=== PATIENT | female | born 1975 | race Caucasian/White ===

== ENCOUNTER 2017-04-14 06:24 | Day surgery (SDC) | payer OTHER ==
[2017-04-13 14:55] VITALS: BMI 37.5
[~2017-04-14 06:24] MED LIST: BUPIVACAINE HCL/PF 0.5% (5MG/ML) 10 ML VIAL IJ ONE
[2017-04-14 07:30] LABS: INR 0.92 (0.82-1.09); PROTHROMBIN TIME (PATIENT) 10.4 SEC (9.98-11.88)
[2017-04-14] MEDS ORDERED: SUCCINYLCHOLINE CHLORIDE 200 MG/10 ML VIAL ONE (07:37)
[2017-04-14] MEDS ORDERED: LIDOCAINE HCL/PF 2% SDV 5ML VIAL ONE (07:37)
[2017-04-14] MEDS ORDERED: PROPOFOL 20 ML ONE ×4 (07:37)
[2017-04-14] MEDS ORDERED: MIDAZOLAM HCL 2 MG/2 ML SINGLE DOSE VIAL ONE (07:37)
[2017-04-14] MEDS ORDERED: BUPIVACAINE HCL/PF 0.5% (5MG/ML) 10 ML VIAL ONE (07:53)
[2017-04-14] MEDS ORDERED: SEVOFLURANE 250 ML BTL ONE (08:07)
[2017-04-14] MEDS ORDERED: ceFAZolin SODIUM 1 GM VIAL IVPB ONE (08:30)
[2017-04-14] MEDS ORDERED: ONDANSETRON 4 MG/2 ML VIAL ONE ×2 (08:32→13:03)
[2017-04-14] MEDS ORDERED: ceFAZolin SODIUM 1 GM VIAL ONE (08:32)
[2017-04-14] MEDS ORDERED: DEXAMETHASONE SOD PHOSPHATE 4 MG/1 ML VIAL ONE (08:32)
[2017-04-14] MEDS ORDERED: HYDROmorphone HCL/PF 1 MG/ML VIAL (FOR PYXIS CHARGING ONLY) ONE ×2 (08:49→10:08)
[2017-04-14] MEDS ORDERED: NEOSTIGMINE METHYLSULFATE 0.5 MG/ML - 10 ML MDV ONE (08:50)
[2017-04-14] MEDS ORDERED: GLYCOPYRROLATE 0.2 MG/1 ML VIAL ONE (08:50)
[2017-04-14] MEDS ORDERED: HYDROmorphone HCL CARPU-JECT 1 MG/1 ML DISP.SYRIN IVPUSH PRN ×2 (10:34→10:55)
[2017-04-14] MEDS ORDERED: ONDANSETRON 4 MG/2 ML VIAL IVPUSH PRN ×2 (10:34→10:54)
[2017-04-14] MEDS ORDERED: BUPIVACAINE HCL/PF 0.5% (5MG/ML) 10 ML VIAL IJ ONE (10:41)
[2017-04-14] MEDS ORDERED: SODIUM CHLORIDE 1,000 ML IV SCH (11:00)
--- NOTE | 2017-04-14 11:06 | OP ---
Operative Note - Note: Operative Date: 04/14/17 Pre-Operative Diagnosis: epigastric Pain. Vomiting. Malfunctioning mechanical device secondary to gastric band Operation: Removal plus replacement of malfunctioning gastric band. Laparoscopic Lysis of adhesions. Excision of fibrous capsule around stomach. Diagnostic Laparoscopy Findings: Large amount of adhesions RUQ and LUQ from previous surgery. Thickened fibrous capsule around stomach secondary to band that was needed to be dissected free Implants: none Post-Operative Diagnosis: Same as Pre-op (plus; Abdominal adhesions and fibrous capsule around stomach) Surgeon: Franklyn Murphy Speech Pathologist: Preston Pino Anesthesia: General Specimens Removed: Gastric Band Estimated Blood Loss (mls): 50 Operative Report Dictated: Yes
[2017-04-14] MEDS ORDERED: oxyCODONE HCL 5 MG TABLET PO PRN ×2 (12:10)
[2017-04-14 12:18] LABS: MCH 27.5 pg (25.7-33.7); MCHC 32.4 g/dl (32.0-36.0); MEAN CELL VOLUME 84.8 fl (80-96); MEAN PLT VOLUME 8.7 fl (7.5-11.1); PLATELET COUNT 143 K/MM3 (134-434); RDW 14.3 % (11.6-15.6); WHITE BLOOD COUNT 7.2 K/mm3 (4.0-10.0)
[2017-04-14 12:26] LABS: BASOPHIL 0.2 % (0-2.0); MCH 27.4 pg (25.7-33.7); MCHC 32.2 g/dl (32.0-36.0); MEAN CELL VOLUME 85.2 fl (80-96); MEAN PLT VOLUME 8.6 fl (7.5-11.1); NEUTROPHILS 88.1 % (42.8-82.8); PLATELET COUNT 146 K/MM3 (134-434); RDW 14.3 % (11.6-15.6); WHITE BLOOD COUNT 7.2 K/mm3 (4.0-10.0)
[2017-04-14 13:03] LABS: ANION GAP 7 (8-16); CALCIUM 7.9 mg/dL (8.5-10.1); CO2 24 mmol/L (21-32); CREATININE 0.8 mg/dL (0.55-1.02); GLUCOSE,RANDOM 114 mg/dL (74-106)
[2017-04-14] MEDS ORDERED: FAMOTIDINE 20 MG PREMIXED IVPB IVPB ONE (13:30)
[2017-04-14] MEDS ORDERED: FAMOTIDINE 20 MG/50 ML IVPB 20 MG/50 ML MG IVPB ONE (13:44)
[2017-04-14 13:52] VITALS: TEMP 97.7
[2017-04-14] MEDS ORDERED: ENOXAPARIN NA (PORCINE) 40 MG/0.4 ML DISP.SYRIN SQ ONE (14:30)
--- NOTE | 2017-04-14 14:31 | OP ---
Operative Note - Note: Operative Date: 04/14/17 Pre-Operative Diagnosis: Evaluate for leak/obstruction after gastric band revision Operation: Upper endoscopy/EGD Post-Operative Diagnosis: Other (No leak/obstruction; inflammatory changes at prior band site) Surgeon: Preston Pino Anesthesia: General Estimated Blood Loss (mls): 0 Operative Report Dictated: Yes
[2017-04-14 17:01] VITALS: BP 122/76; PULSE 80
[2017-04-14] MEDS ORDERED: FAMOTIDINE IV 20 MG/12 ML VIAL IVPUSH SCH (22:00)
--- NOTE | 2017-04-15 09:20 | OP ---
DATE OF OPERATION: 04/14/2017 PREOPERATIVE DIAGNOSES: 1. Epigastric pain. 2. Vomiting. 3. Malfunctioning mechanical device secondary to gastric band. POSTOPERATIVE DIAGNOSES: 1. Epigastric pain. 2. Vomiting. 3. Malfunctioning mechanical device secondary to gastric band. 4. Abdominal adhesions. 5. Fibrous capsule around the stomach. PROCEDURE PERFORMED: 1. Removal of malfunctioning gastric band. 2. Laparoscopic lysis of adhesions. 3. Excision of fibrous capsule around the stomach. 4. Diagnostic laparoscopy. OPERATING SURGEON: Franklyn Murphy MD PHOTOLITH OPERATOR: Preston Pino MD ANESTHESIA: General. OPERATIVE PROCEDURE: The patient was brought into the operating room, placed on the OR table in supine position. All precautions were taken initially including padding for the back and the feet, and Venodyne boots were placed on both lower extremities. At that point the abdomen was prepped and draped in the usual manner. A Veress needle was placed in the left upper quadrant and a pneumoperitoneum was established. A No. 12 bladeless trocar was placed in the left upper quadrant. Through that trocar, a laparoscopic camera was placed. Immediately upon placing the camera, there were noted to be a lot of adhesions in the right upper quadrant from the patient's previous surgery. This was where the next trocar was going to be placed, so because of that, a No. 12 trocar was now placed over the left costal margin where there were also adhesions, but it was placed a little higher than usual. Using that as a working port, the adhesions in the right upper quadrant by the falciform ligament were dissected free until the entire right upper quadrant was free of adhesions. At this point a No. 15 bladeless trocar was placed in the right upper quadrant and a No. 5 bladeless trocar below the right costal margin. A Charis liver retractor was then placed in the epigastrium to retract the left lobe of the liver. The patient was then placed in a 20-degree reverse Trendelenburg position, and the tubing leading to the stomach around the band was grabbed by the broker assistant surgeon, retracted to the patient's left side. The operating surgeon was able to then grab the stomach wall and pull it inferiorly on the lesser curvature side. At this point the electrocautery was used to score the adhesions and the fibrosis capsule wrap off of the band on the lesser curvature until the entire band of the lesser curvature was free and visible. At this point the operating surgeon retracted the band and the tubing toward the patient's right side. The broker assistant surgeon retracted the stomach inferiorly on the greater curve. Now the electrocautery was used to dissect the capsule off the band, and this continued until the entire band on the greater curvature was in full view. The band was then opened and was cut in 2, and both pieces were removed from the stomach, sent off the field to pathology as specimen. Attention was now directed to the fibrous capsule of the stomach. This was causing a constriction of the stomach and possible symptoms for the patient. With both the broker assistant and operating surgeon lifting the capsule up, the operating surgeon was able to place laparoscopic scissors under the capsule and split it from inferior to superior all the way up toward the esophagus and towards the liver. Once this was done, the capsule was then peeled back first on the lesser curvature side and then on the greater curvature until the entire anterior wall of the stomach was free of fibrous capsule and adhesions. At this point the stomach was pulled to the patient's right side by the operating surgeon as the broker assistant surgeon retracted the omentum inferiorly. Electrocautery was used to score the peritoneum over the left esophagogastric junction in order to dissect the esophagogastric junction. At that point, a laparoscopic instrument was placed from the right side by the caudate lobe anterior to the right lorena until it was able to come free in the left upper quadrant. At this point the gastric band, which was an AP large band, was then prepped by the OR team, placed through the No. 15 port site. The band tube had been placed into the laparoscopic instrument which was pulled, withdrawn to the patient's right side. The band tube was placed into the band buckle, which was tied or cinched down, and the band was rotated to the patient's right side. The laparoscopic instrument easily fit between the band and anterior stomach wall. At this point, the broker assistant surgeon, Dr. Pino, scrubbed out and performed an upper endoscopy. The upper endoscopy details will be described in his note, but essentially showed that the band was not too tight and there was a channel for liquids and food to continue into the distal stomach. It also showed that there were no signs of any leakage of the stomach from all the lysis of adhesions and excision of capsule which was done along the stomach wall. At that point the upper endoscopy was completed by Dr. Pino. At this point the band tubing was brought out the No. 15 site. Under direct vision all trocars were removed, the pneumoperitoneum was released. The new band tubing is now connected to the band port from the previous band which still remained in place, and at that point all trocar sites received 0.25% Marcaine, were closed with 4-0 Biosyn in subcuticular fashion. The site of the port first was closed with 3-0 Vicryl in the subcutaneous tissue, followed by 4-0 Biosyn in subcuticular fashion. Dressings were applied, patient awoken from anesthesia and transferred out of the operating room to the recovery room in stable condition. EXPECTED BLOOD LOSS: 50 mL. Carola [id number]
--- NOTE | 2017-04-15 09:21 | PATH ---
Surgical Pathology Report Patient Name: REYNALDO VOGEL [facility]. Rec. #: [id number] /Age/Gender: 1975 (Age: 41) / F Account: [id number] Location: [facility] SURGICAL Taken: 04/14/2017 Received: 04/14/2017 Reported: 04/15/2017 Physicians: Franklyn Murphy M.D. Specimen(s) Received REMOVED GASTRIC BAND Clinical History Mechanical complication of bile duct prosthesis Final Diagnosis GASTRIC BAND, REMOVAL: STAFF RADIATION THERAPIST (GASTRIC BAND). MACROSCOPIC DIAGNOSIS Electronically Signed Judi Espinal M.D. Gross Description Received fresh labeled "removed gastric band," are 2 portions of a disrupted gastric band measuring 5.0 x 1.3 x 0.7 cm and 5.8 x 1.3 x 0.7 cm. The larger portion displays an attached 34.5 cm in length portion of white tubing. There are 2 additional portions of white tubing separately received within the same container measuring 5.3 and 6.8 cm in length. No soft tissue is present. No sections are submitted, gross only. 04/14/2017 saudi04/14/2017
--- NOTE | 2017-04-15 10:40 | OP ---
DATE OF OPERATION: 04/14/2017 PREOPERATIVE DIAGNOSIS: Intraoperative consultation requested for rule out obstruction or leak after revision of gastric band placement by Dr. Murphy. DESCRIPTION OF PROCEDURE: The patient was scheduled for revision of her gastric band. She was having complaints of dysphagia, epigastric pain, and reflux. Intraoperatively, Dr. Murphy freed the band from its initial position and removed it. A new band was placed in a separate location. Please refer to Dr. Murphy's note for the operative findings and report. Because of the extensive scar tissue noted from the previous band placement and the requirement for capsulotomy, request was made for an intraoperative endoscopy. An endoscopy was performed. The entirety of the esophagus, GE junction, stomach was inspected down to the level of the pylorus. No leak or obstruction was noted. There was noted to be extensive inflammatory at the level of the previous band. The stomach was suctioned. The endoscope removed from the patient fully intact. The patient tolerated the procedure well. The remainder of the procedure was continued. Carola [id number]
--- NOTE | 2017-04-16 07:39 | OP ---
DATE OF OPERATION: 04/14/2017 PREOPERATIVE DIAGNOSES: 1. Epigastric pain. 2. Vomiting. 3. Malfunctioning mechanical device secondary to gastric band. POSTOPERATIVE DIAGNOSES: 1. Epigastric pain. 2. Vomiting. 3. Malfunctioning mechanical device secondary to gastric band. 4. Abdominal adhesions. 5. Fibrous capsules around the stomach. PROCEDURES: 1. Removal plus replacement of malfunctioning gastric band. 2. Laparoscopic lysis of adhesions. 3. Excision of fibrous capsule around the stomach. 4. Diagnostic laparoscopy. OPERATING SURGEON: Franklyn Murphy MD PROGRAM CHECKER: Preston Pino MD ANESTHESIA: General. EXPECTED BLOOD LOSS: 50 mL. OPERATIVE PROCEDURE: The patient was brought into the operating room and was placed on the OR table in the supine position. All precautions were taken initially including padding for the back and the feet, and Venodyne boots were placed on both lower extremities. At that point, the abdomen was prepped and draped in the usual manner. A Veress needle was placed in the left upper quadrant, and a pneumoperitoneum was established. A No. 12 bladeless trocar was placed in the left upper quadrant, and through that trocar, a laparoscopic camera was placed. Immediately upon placing the camera, there was noted to be a lot of adhesions in the right upper quadrant from the patient's previous surgery. This was where the next trocar was going to be placed, so because of that, a No. 12 bladeless trocar was now placed over the left costal margin where there were also adhesions, but it was placed a little higher than usual. Using that as a working port, the adhesions in the right upper quadrant by the falciform ligament were dissected free until the entire right upper quadrant was free of adhesions. At this point, a No. 15 bladeless trocar was placed in the right upper quadrant and a No. 5 bladeless trocar below the right costal margin. A Charis liver retractor was then placed to the epigastrium to retract the left lobe of the liver. The patient was then placed in a 20-degree reverse Trendelenburg position, and the tubing leading to the stomach around the band was grabbed by the emergency medicine physician assistant surgeon and retracted to the patient's left side. The operating surgeon was then able to then grab the stomach wall and pull it inferiorly on the lesser curvature side. At this point, the electrocautery was used to score the adhesions and the fibrous capsule wrap off of the band on the lesser curvature until the entire band of the lesser curvature was free and visible. At this point, the operating surgeon retracted the band and the tubing towards the patient's right side. The emergency medicine physician assistant surgeon retracted the stomach inferiorly on the greater curve. Now the electrocautery was used to dissect the capsule off of the band, and this continued until the entire band on the greater curvature was in full view. The band was then opened and was cut in two, and both pieces were removed from around the stomach and sent off the field to Pathology as a specimen. Attention was now directed to the fibrous capsule of the stomach. This was causing a constriction of the stomach and possible symptoms for the patient. With both the emergency medicine physician assistant and the operating surgeon lifting the capsule up, the operating surgeon was able to place laparoscopic scissors under the capsule and split it from inferior to superior all the way up towards the esophagus and towards the liver. Once this was done, the capsule was then peeled back first on the lesser curvature side and then on the greater curvature side until the entire anterior wall of the stomach was free of fibrous capsule and adhesions. At this point, the stomach was pulled to the patient's right side by the operating surgeon as the emergency medicine physician assistant surgeon retracted the omentum inferiorly. Electrocautery was used to score the peritoneum over the left esophagogastric junction and noted to dissect the esophagogastric junction. At this point, a laparoscopic instrument was placed from the right side by the caudate lobe anterior to the right lorena until it was free and able to come in the left upper quadrant of the abdomen. At this point, the gastric band, which was an AP large band, was then prepped by the OR team and placed with No. 15 port site. The band tubing had been placed into the laparoscopic instrument, which was pulled over, through, and towards the patient's right side. The band tubing was placed into the band buckle, which was tied or cinched down, and the band was rotated to the patient's right side. A laparoscopic instrument easily fit between the band and the anterior stomach wall. At this point, the emergency medicine physician assistant surgeon, Dr. Pino, scrubbed out of the operative field and performed an upper endoscopy. The upper endoscopy details will be described in his note but essentially show that the band was not too tight and there was a channel for liquids and food to continue into the distal stomach. It also showed that there was no sign of any leakage of the stomach from all of the lysis of adhesions and excision of the capsule, which was done along the stomach wall. At that point, the upper endoscopy was completed by Dr. Pino. At this point, the band tubing was brought out with a No. 15 site, and under direct vision, all trocars were removed and the pneumoperitoneum was released. The new band tubing is now connected to the band port from the previous band, which still remained in place. At that point, all trocar sites received 0.25% Marcaine and were closed with 4-0 Biosyn in subcuticular fashion. The site of the port first was closed with 3-0 Vicryl in the subcutaneous tissue followed by 4-0 Biosyn in subcuticular fashion. Dressings were applied. The patient was awoken from anesthesia and transferred out of the operating room to the recovery room in stable condition. Carola [id number]
== END 2017-04-14 16:20 | disposition home or self-care (01) ==
LOC: JASU-SURG 06:24
PROVIDERS: ATTEND Surgery
PROC: 0DV64CZ Restriction of Stomach with Extraluminal Device, Percutaneous Endoscopic Approach (ICD-10-PCS; 2017-04-14)
PROC: 0DP64CZ Removal of Extraluminal Device from Stomach, Percutaneous Endoscopic Approach (ICD-10-PCS; principal; 2017-04-14 08:00)
DX: T85.590A Other mechanical complication of bile duct prosthesis, initial encounter (principal); R10.13 Epigastric pain; R11.10 Vomiting, unspecified; E66.01 Morbid (severe) obesity due to excess calories; K66.0 Peritoneal adhesions (postprocedural) (postinfection)
CPT/HCPCS: 36415; 80048; 84703; 85025; 85027; 85610; 86850; 86900; 86901; 88300-TC; 94760